=== PATIENT | male | born 1955 | race Caucasian/White ===

== ENCOUNTER → 2017-01-17 | Outpatient (CLI) | payer OTHER | END | disposition home or self-care (01) | LOC: CARD 14:28 | PROVIDERS: ATTEND Internal Medicine Critical Care Medicine | DX: J45.40 Moderate persistent asthma, uncomplicated (principal); I26.99 Other pulmonary embolism without acute cor pulmonale | CPT/HCPCS: 94060; 94726; 94729 ==